=== PATIENT | female | born 1970 | race Native Hawaiian/Other Pacific Islander ===

== ENCOUNTER 2017-06-27 23:21 | Observation (INO) | payer OTHER, BC ==
--- NOTE | 2017-06-27 23:54 | ED PDOC ---
HPI: Chest Pain Time Seen by Provider: 06/27/17 23:30 Chief Complaint (Nursing): Chest Pain Chief Complaint (Provider): Palpitations History Per: Patient History/Exam Limitations: no limitations Onset/Duration Of Symptoms: Hrs (1-2) Current Symptoms Are (Timing): Intermittent Episodes Severity: Moderate Pain Scale Rating Of: 0 Quality: Pressure Associated Symptoms: Diaphoresis (resolved). 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 Her complaints were initially constant, lasting for approximately 1 hour , but are now intermittent. No chest pain, headache, syncope, or other complaints. She has a history of HTN, and did take a Norvasc at 21:00 per her routine. - Risk Factors TAD Risk Factors: Pos: Hypertension Past Medical History Vital Signs: Last Vital Signs Temp 98.2 F 06/28/17 11:56 Pulse 66 06/28/17 14:11 Resp 21 06/28/17 14:11 BP 132/78 06/28/17 14:11 Pulse Ox 99 06/28/17 14:11 - Medical History PMH: HTN, Hyperlipidemia - Surgical History Surgical History: No Surg Hx - Family History Family History: States: Unknown Family Hx - Social History Current smoker - smoking cessation education provided: No Ex-Smoker (has not smoked in the last 12 months): No Alcohol: None Drugs: Denies - Home Medications Home Medications: Ambulatory Orders Medication Instructions Recorded amLODIPine [Norvasc] 10 mg PO DAILY 06/28/17 - Allergies Allergies/Adverse Reactions: Allergies Allergy/AdvReac Type Severity Reaction Status Date / Time No Known Allergies Allergy Verified 06/27/17 23:29 Review of Systems ROS Statement: Except As Marked, All Systems Reviewed And Found Negative Constitutional: Positive for: Sweats Cardiovascular: Positive for: Palpitations. Negative for: Chest Pain Musculoskeletal: Positive for: Neck Pain Physical Exam - Reviewed Nursing Documentation Reviewed: Yes Vital Signs Reviewed: Yes - Physical Exam Appears: Positive for: Well, Non-toxic, No Acute Distress Head Exam: Positive for: ATRAUMATIC, NORMAL INSPECTION, NORMOCEPHALIC Skin: Positive for: Normal Color, Warm, DRY Eye Exam: Positive for: EOMI, Normal appearance, PERRL ENT: Positive for: Normal ENT Inspection Neck: Positive for: Normal, Painless ROM Cardiovascular/Chest: Positive for: Regular Rate, Rhythm, Tachycardia. Negative for: Gallop, Murmur, Friction Rub, Irregularly Irregular Respiratory: Positive for: CNT, Normal Breath Sounds Pulses-Radial (L): 2+ Pulses-Radial (R): 2+ Gastrointestinal/Abdominal: Positive for: Normal Exam, Bowel Sounds, Soft Back: Positive for: Normal Inspection Extremity: Positive for: Normal ROM Neurologic/Psych: Positive for: Alert, Oriented - Laboratory Results Result Diagrams: 06/28/17 08:49 06/28/17 08:49 - ECG ECG: Positive for: Interpreted By Me, Viewed By Me ECG Rhythm: Positive for: Normal QRS, Normal ST Segment, Sinus Tachycardia (105) . Negative for: Atrial Fibrillation, Right Bundle Branch Block, Left Bundle Branch Block, ST/T Changes O2 Sat by Pulse Oximetry: 99 Medical Decision Making Medical Decision Making: Initial Impression: Palpitations v. arrhythmia v. atypical ACS v. HTN Initial Plan: - EKG - Labs and UA Scribe Attestation Documented by Yesi De La O acting as a scribe for Eve Cunha MD. Provider Attestation: All medical record entries made by the Scribe were at my direction and personally dictated by me. I have reviewed the chart and agree that the record accurately reflects my personal performance of the history, physical exam, medical decision making, and the department course for this patient. I have also personally directed, reviewed, and agree with the discharge instructions and disposition. Disposition - Clinical Impression Clinical Impression: Chest pain - Patient ED Disposition Is Patient to be Admitted: No Doctor Will See Patient In The: Office Counseled Patient/Family Regarding: Studies Performed, Diagnosis, Need For Followup - Disposition Disposition: Transfer of Care Disposition Time: 23:59 Condition: FAIR
[2017-06-28 00:29] LABS: BASO # 0.1 K/uL (0.0-0.2); BASO % 1.3 % (0.0-2.0); EOS # 0.1 K/uL (0.0-0.7); EOS % 2.4 % (0.0-4.0); HEMATOCRIT 35.8 % (34.0-47.0); LYMPH # 1.5 K/uL (1.0-4.3); LYMPH % 27.5 % (20.0-40.0); MEAN CELL VOLUME 67.5 fl (81.0-99.0); MEAN CORPUSCULAR HEMOGLOBIN 21.1 pg (27.0-31.0); MEAN CORPUSCULAR HGB CONC 31.2 g/dL (33.0-37.0); MEAN PLATELET VOLUME 7.5 fl (7.2-11.7); MONO # 0.4 K/uL (0.0-0.8); MONO % 7.2 % (0.0-10.0); NEUT # 3.3 K/uL (1.8-7.0); NEUT % 61.6 % (50.0-75.0); WHITE BLOOD COUNT 5.4 K/uL (4.8-10.8)
[2017-06-28 00:37] LABS: BLOOD UREA NITROGEN 14 mg/dl (7-17); CARBON DIOXIDE 21 mmol/L (22-30); CHLORIDE 106 mmol/L (98-107); GFR AFRICAN-AMERICAN > 60; GLUCOSE,RANDOM 115 mg/dL (65-105); POTASSIUM 3.7 MMOL/L (3.6-5.0); SODIUM 138 mmol/l (132-148)
--- NOTE | 2017-06-28 01:49 | ED PDOC ---
- Laboratory Results Result Diagrams: 06/28/17 00:26 06/28/17 00:26 - ECG O2 Sat by Pulse Oximetry: 100 Medical Decision Making Medical Decision Making: Transfer of staff for pending labs and reevaluation. 01:48: labs reviewed and showed no clinically significant findings. Patient reevaluated and the case was referred to Dr. Medley, Medicine steam station supervisor. Scribe Attestation Documented by Yesi De La O acting as a scribe for Ross Gamez MD. Provider Attestation: All medical record entries made by the Scribe were at my direction and personally dictated by me. I have reviewed the chart and agree that the record accurately reflects my personal performance of the history, physical exam, medical decision making, and the department course for this patient. I have also personally directed, reviewed, and agree with the discharge instructions and disposition. Disposition Counseled Patient/Family Regarding: Studies Performed, Diagnosis - Clinical Impression Clinical Impression: Chest pain - POA Present On Arrival: None - Disposition Disposition: Hospitalized as Observation Patient Disposition Time: 01:20 Condition: FAIR
[2017-06-28 04:12] VITALS: BMI 27.6
--- NOTE | 2017-06-28 08:44 | RAD ---
HISTORY: Chest pain COMPARISON: 06/03/2011 FINDINGS: LUNGS: The lungs are well inflated and clear. PLEURA: No significant pleural effusion identified, no pneumothorax apparent. CARDIOVASCULAR: Normal. OSSEOUS STRUCTURES: No significant abnormalities. VISUALIZED UPPER ABDOMEN: Normal. OTHER FINDINGS: None. IMPRESSION: No active pulmonary disease.
[2017-06-28 09:09] LABS: HEMATOCRIT 33.9 % (34.0-47.0); MEAN CELL VOLUME 66.3 fl (81.0-99.0); MEAN CORPUSCULAR HEMOGLOBIN 21.1 pg (27.0-31.0); MEAN CORPUSCULAR HGB CONC 31.8 g/dL (33.0-37.0); RED CELL DISTRIBUTION WIDTH 14.6 % (11.5-14.5); WHITE BLOOD COUNT 6.6 K/uL (4.8-10.8)
[2017-06-28 09:16] LABS: ALB/GLOB RATIO 1.3 (1.0-2.1); ALKALINE PHOSPHATASE 73 U/L (38-126); ALT/SGPT 25 U/L (9-52); AST/SGOT 28 U/L (14-36); BILIRUBIN,TOTAL 0.8 mg/dl (0.2-1.3); BLOOD UREA NITROGEN 8 mg/dl (7-17); CALCIUM 9.1 mg/dL (8.4-10.2); CARBON DIOXIDE 22 mmol/L (22-30); CHLORIDE 106 mmol/L (98-107); CHOLESTEROL 243 mg/dL (0-199); GFR AFRICAN-AMERICAN > 60; GLUCOSE,RANDOM 107 mg/dL (65-105); POTASSIUM 4.1 MMOL/L (3.6-5.0); SODIUM 140 mmol/l (132-148); TOTAL PROTEIN 7.9 G/DL (6.3-8.2)
[2017-06-28 09:48] LABS: THYROID STIMULATING HORMONE 0.64 mIU/ML (0.46-4.68)
[2017-06-28 11:58] VITALS: TEMP 98.2
--- NOTE | 2017-06-28 12:15 | CP.PCM.HP ---
History of Present Illness - History of Present Illness History of Present Illness: This is a 47 y/o female with hx of HTN and hyperlipidemia was admitted for dizziness and palpitation and elevated BP even after taking Norvasc. She has been under a lot of pressure lately. She had seen a transportation lead previously and was told to just go on a diet. .Initial labs showed negative cardiac enzymes and elevated LDL. She denies any chest pain at the moment. Present on Admission - Present on Admission Any Indicators Present on Admission: No History of DVT/PE: No History of Uncontrolled Diabetes: No Urinary Catheter: No Decubitus Ulcer Present: No Review of Systems - Cardiovascular Cardiovascular: Palpitations, Rapid Heart Rate Past Patient History - Past Medical History & Family History Past Medical History?: Yes - Past Social History Smoking Status: Never Smoked - CARDIAC Hx Cardiac Disorders: Yes - PULMONARY Hx Respiratory Disorders: No - NEUROLOGICAL Hx Neurological Disorder: No - HEENT Hx HEENT Problems: No - RENAL Hx Chronic Kidney Disease: No - ENDOCRINE/METABOLIC Hx Endocrine Disorders: No - HEMATOLOGICAL/ONCOLOGICAL Hx Blood Disorders: No - INTEGUMENTARY Hx Dermatological Problems: No - MUSCULOSKELETAL/RHEUMATOLOGICAL Hx Musculoskeletal Disorders: No - GASTROINTESTINAL Hx Gastrointestinal Disorders: No - GENITOURINARY/GYNECOLOGICAL Hx Genitourinary Disorders: Yes - PSYCHIATRIC Hx Psychophysiologic Disorder: No - SURGICAL HISTORY Hx Surgeries: Yes Other/Comment: Fibroids removed. - ANESTHESIA Hx Anesthesia: Yes Hx Anesthesia Reactions: No Hx Malignant Hyperthermia: No Has any member of the family had a problem w/ anesthesia?: No Meds Allergies/Adverse Reactions: Allergies Allergy/AdvReac Type Severity Reaction Status Date / Time No Known Allergies Allergy Verified 06/27/17 23:29 Physical Exam - Head Exam Head Exam: NORMAL INSPECTION - Eye Exam Eye Exam: Normal appearance - ENT Exam ENT Exam: Mucous Membranes Moist - Respiratory Exam Respiratory Exam: Clear to Auscultation Bilateral - Cardiovascular Exam Cardiovascular Exam: REGULAR RHYTHM - GI/Abdominal Exam GI & Abdominal Exam: Normal Bowel Sounds - Neurological Exam Neurological exam: CN II-XII Intact, Oriented x3 - Psychiatric Exam Psychiatric exam: Normal Mood Results - Vital Signs Recent Vital Signs: Last Vital Signs Temp 98.2 F 06/28/17 11:56 Pulse 98 H 06/28/17 11:56 Resp 18 06/28/17 11:56 BP 138/86 06/28/17 11:56 Pulse Ox 100 06/28/17 11:56 - Labs Result Diagrams: 06/28/17 08:49 06/28/17 08:49 Labs: Laboratory Results - last 24 hr 06/28/17 06/28/17 08:49 08:49 WBC 6.6 RBC 5.12 Hgb 10.8 L Hct 33.9 L MCV 66.3 L MCH 21.1 L MCHC 31.8 L RDW 14.6 H Plt Count 257 Sodium 140 Potassium 4.1 Chloride 106 Carbon Dioxide 22 Anion Gap 16 BUN 8 Creatinine 0.5 L Est GFR ( Amer) > 60 Est GFR (Non-Af Amer) > 60 Random Glucose 107 H Calcium 9.1 Total Bilirubin 0.8 AST 28 ALT 25 Alkaline Phosphatase 73 Troponin I < 0.0120 Total Protein 7.9 Albumin 4.5 Globulin 3.4 Albumin/Globulin Ratio 1.3 Triglycerides 56 Cholesterol 243 H LDL Cholesterol Direct 191 H HDL Cholesterol 43 TSH 3rd Generation 0.64 Assessment & Plan (1) Accelerated hypertension Status: Acute (2) Palpitation Status: Acute (3) Hyperlipidemia Status: Acute - Assessment and Plan (Free Text) Plan: Discussed with Dr lester will keep patient on lopressor 50 bid start lipitor 20 mg daily ECHO low fat diet will dc if stable after dose of metoprolol
[2017-06-28 14:13] VITALS: BP 132/78; PULSE 66; RESP 21; O2SAT 99
--- NOTE | 2017-06-28 23:52 | CON ---
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 The patient presented because of palpitations, rapid heartbeat and chest discomfort that is worse on deep breathing. The patient does not recall undergoing a stress test in the past, went to see , Cardiology, had an EKG that was normal. SOCIAL HISTORY: Nonsmoker, nondrinker. 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 MEDICATIONS: The patient is on amlodipine at 10 mg once a day. REVIEW OF SYSTEMS: No nausea or vomiting. No fever or chills. PHYSICAL EXAMINATION: GENERAL: The patient is a middle-aged female, who does not appear to be in any distress. VITAL SIGNS: Blood pressure 140/91, heart rate 94, temperature 98.4,and respirations 15. HEENT: Normocephalic. NECK: No JVD. CHEST: Clear. HEART: S1 and S2 regular. ABDOMEN: Soft. EXTREMITIES: No edema. No calf tenderness. LABORATORY DATA: Hemoglobin and hematocrit 10.8 and 33.9, white count and platelet count are within normal limits. SMA-7: Sodium 140, potassium 4.1, chloride 106, CO2 of 22, glucose 107, BUN 8, and creatinine 0.5. Two sets of troponins are negative. Total cholesterol elevated 243 and triglycerides elevated at 191. EKG revealed sinus tachycardia at a rate of 105. TSH is within normal limits. D-dimer is within normal limits. Chest x-ray is unremarkable. ASSESSMENT: 1. Uncontrolled hypertension. 2. Mild sinus tachycardia. 3. Atypical chest pain, myocardial infarction is ruled out. 4. Hyperlipidemia. RECOMMENDATIONS: Discontinue Norvasc and start instead Lopressor 50 mg once a day, start Lipitor 20 mg once a day, aspirin 81 mg once a day. Obtain an echocardiogram. Blayne Barrientos MD
--- NOTE | 2017-06-30 10:14 | CARD ---
APPROVED REPORT EXAM: Two-dimensional and M-mode echocardiogram with Doppler and color Doppler. Other Information Quality : GoodRhythm : NSR INDICATION Chest Pain 2D DIMENSIONS IVSd0.78 (0.7-1.1cm)LVDd4.65 (3.9-5.9cm) LVOT Diameter1.94 (1.8-2.4cm)PWd0.70 (0.7-1.1cm) IVSs1.20 (0.8-1.2cm)LVDs3.27 (2.5-4.0cm) FS (%) 29.7 %PWs1.24 (0.8-1.2cm) M-Mode DIMENSIONS Left Atrium (MM)3.09 (2.5-4.0cm)IVSd0.91 (0.7-1.1cm) Aortic Root3.31 (2.2-3.7cm)LVDd4.74 (4.0-5.6cm) Aortic Cusp Exc.1.63 (1.5-2.0cm)PWd0.88 (0.7-1.1cm) IVSs1.41 cmFS (%) 45 % LVDs2.59 (2.0-3.8cm)PWs1.38 cm Mitral Valve MV E Zndudynt34.8cm/sMV DECEL [id number] A Kndnkgdr07.5cm/s MV IOG14xzK/A ratio1.5MVA (PHT)3.70cm2 TDI Lateral E' Peak V12.22cm/sMedial E' Peak V8.15cm/sE/Lateral E'8.0 E/Medial E'12.0 Pulmonary Valve PV Peak Pdzrskqc63.6cm/s LEFT VENTRICLE The left ventricle is normal size. There is normal left ventricular wall thickness. The left ventricular function is normal. The left ventricular ejection fraction is 60% There is normal LV segmental wall motion. The left ventricular diastolic function is normal. No left ventricle thrombus noted on this study. There is no ventricular septal defect visualized. There is no left ventricular aneurysm. There is no mass noted in the left ventricle. RIGHT VENTRICLE The right ventricle is normal size. There is normal right ventricular wall thickness. The right ventricular systolic function is normal. ATRIA The left atrium size is normal. The right atrium size is normal. The interatrial septum is intact with no evidence for an atrial septal defect. AORTIC VALVE The aortic valve is normal in structure and function. No aortic regurgitation is present. There is no aortic valvular stenosis. There is no aortic valvular vegetation. MITRAL VALVE The mitral valve is normal in structure and function. There is no evidence of mitral valve prolapse. There is no mitral valve stenosis. There is no mitral valve regurgitation noted. TRICUSPID VALVE The tricuspid valve is normal in structure and function. There is no tricuspid valve regurgitation noted. There is no tricuspid valve prolapse or vegetation. There is no tricuspid valve stenosis. PULMONIC VALVE The pulmonary valve is normal in structure and function. There is no pulmonic valvular regurgitation. There is no pulmonic valvular stenosis. GREAT VESSELS The aortic root is normal in size. The ascending aorta is normal in size. The IVC is normal in size and collapses >50% with inspiration. PERICARDIAL EFFUSION The pericardium appears normal. There is no pleural effusion. <Conclusion> Normal Echocardiogram
--- NOTE | 2017-06-30 11:11 | CARD ---
APPROVED REPORT EKG Measurement Heart [id number] <Conclusion> Sinus tachycardia Nonspecific ST abnormality Abnormal ECG
== END 2017-06-28 16:00 | disposition home or self-care (01) ==
LOC: H.ER 23:21 → H.ERHOLD 06-28 01:22 → H.ICU/CCU 06-28 03:08
PROVIDERS: ADMIT Family Medicine; ATTEND Family Medicine
DX: R07.89 Other chest pain (principal); R00.0 Tachycardia, unspecified; I10 Essential (primary) hypertension; E78.5 Hyperlipidemia, unspecified
CPT/HCPCS: 71010; 80053; 80061; 84443; 84484; 85025; 85027; 85378; 87081; 93005; 93306; 99282; G0378

== ENCOUNTER 2019-01-26 17:25 | Emergency (ER) | payer OTHER ==
[2019-01-26 17:25] VITALS: BMI 27.6
[2019-01-26 17:38] VITALS: TEMP 97.7
--- NOTE | 2019-01-26 19:39 | ED PDOC ---
Lower Extremity Pain/Injury Time Seen by Provider: 01/26/19 18:45 Chief Complaint (Nursing): Lower Extremity Problem/Injury Chief Complaint (Provider): Left Hip Pain History Per: Patient History/Exam Limitations: no limitations Onset/Duration Of Symptoms: Hrs (since this morning) Current Symptoms Are (Timing): Still Present Additional Complaint(s): 48 year old female presents to the ED for new onset left lateral hip pain since waking up this morning, worse with movement. She notes she has been taking Motrin with no relief, last dose around 1500. Otherwise, denies trauma, numbness, back pain, urinary symptoms, fever, and chills. PMD: Jordan Adams Past Medical History Reviewed: Historical Data, Nursing Documentation, Vital Signs Vital Signs: Last Vital Signs Temp 97.7 F 01/26/19 17:36 Pulse 95 H 01/26/19 17:36 Resp 16 01/26/19 17:36 BP 143/85 01/26/19 17:36 Pulse Ox 99 01/26/19 17:36 - Medical History PMH: HTN, Hyperlipidemia Denies: HIV, Chronic Kidney Disease - Surgical History Surgical History: No Surg Hx - Family History Family History: States: Unknown Family Hx - Social History Current smoker - smoking cessation education provided: No Alcohol: None Drugs: Denies - Home Medications Home Medications: Ambulatory Orders Medication Instructions Recorded amLODIPine [Norvasc] 10 mg PO DAILY 06/28/17 Ibuprofen [Motrin] 600 mg PO Q8H PRN #21 tab 01/26/19 - Allergies Allergies/Adverse Reactions: Allergies Allergy/AdvReac Type Severity Reaction Status Date / Time No Known Allergies Allergy Verified 06/27/17 23:29 Review of Systems ROS Statement: Except As Marked, All Systems Reviewed And Found Negative Constitutional: Negative for: Fever, Chills Genitourinary Female: Negative for: Dysuria, Frequency Musculoskeletal: Positive for: Other (left lateral hip pain). Negative for: Back Pain Neurological: Negative for: Numbness Physical Exam - Reviewed Nursing Documentation Reviewed: Yes Vital Signs Reviewed: Yes - Physical Exam Appears: Positive for: No Acute Distress Head Exam: Positive for: ATRAUMATIC, NORMOCEPHALIC Skin: Positive for: Normal Color, Warm, Dry. Negative for: Rash Cardiovascular/Chest: Positive for: Regular Rate, Rhythm Respiratory: Positive for: Normal Breath Sounds. Negative for: Respiratory Distress Pulses-Dorsalis Pedis (L): 2+ Pulses-Dorsalis Pedis (R): 2+ Gastrointestinal/Abdominal: Positive for: Normal Exam, Soft. Negative for: Tenderness Back: Positive for: Normal Inspection. Negative for: Vertebral Tenderness Extremity: Positive for: Normal ROM (bilateral hips), Tenderness (point tenderness to left lateral thigh about 3 finger breadths below buttock, worse with movement; no pelvis or hip tenderness). Negative for: Swelling (or ecchymosis) Neurological/Psych: Positive for: Awake, Alert, Oriented (x3) - ECG O2 Sat by Pulse Oximetry: 99 (RA) Pulse Ox Interpretation: Normal Medical Decision Making Medical Decision Making: Time: 1851 Initial Impression: left hip pain Initial Plan: --US duplex left leg --Reevaluation 1956 Left hip and left femur XRs ordered as per patient request 2021 US FINDINGS: DEEP VEINS: The common femoral, superficial femoral, and popliteal veins are echolucent and compressible. There is normal color Doppler flow throughout. The visualized calf veins appear patent. SUPERFICIAL VEINS: The visualized greater saphenous vein is patent. SOFT TISSUES: No popliteal fossa cyst or other abnormalities. IMPRESSION: No deep venous thrombosis evident on left lower extremity examination. 2144 XRs reviewed by me for no fractures or dislocations. Patient informed if there are any discrepancies in the final read, she will be notified within 24 hours. Otherwise, patient stable for discharge and verbalized understanding of return parameters. Work note for two days out of work provided with script for Motrin 600mg. Advised to follow up with PMD in 2-3 days. Patient again verbalized understanding and agreement with all questions answered at this time. Scribe Attestation: Documented by Stephanie Perry, acting as a scribe for Cha Del Real NP. Provider Scribe Attestation: All medical record entries made by the Scribe were at my direction and personally dictated by me. I have reviewed the chart and agree that the record accurately reflects my personal performance of the history, physical exam, medical decision making, and the department course for this patient. I have also personally directed, reviewed, and agree with the discharge instructions and disposition. Disposition - Clinical Impression Clinical Impression: Leg pain - Patient ED Disposition Is Patient to be Admitted: No - Disposition Referrals: Jordan Adams MD [Staff Provider] - Disposition: Routine/Home Disposition Time: 21:45 Condition: IMPROVED Prescriptions: Ibuprofen [Motrin] 600 mg PO Q8H PRN #21 tab PRN Reason: Pain, Moderate (4-7) Instructions: Lower Extremity Muscle Strain (DC), Stretching Exercises for Your Lower Body Forms: [facility] ED School/Work Excuse Print Language: MALIAN - POA Present On Arrival: None
[2019-01-26 21:47] VITALS: BP 143/91; PULSE 77; RESP 19
[2019-01-26 21:48] VITALS: O2SAT 99
--- NOTE | 2019-01-27 10:29 | RAD ---
Date of service: 01/26/2019 PROCEDURE: HISTORY: pain COMPARISON: None TECHNIQUE: AP pelvis and frog's leg view. . FINDINGS: Bilateral superolateral hip joint space mild narrowing.. Minimal superolateral and minimal inferomedial acetabular spurring. Left-sided may be very slightly more pronounced. No marked differences here seen. Minimal osseous hypertrophic changes over the greater tuberosity. Some concomitant gluteal tendon S calcifications tendinopathy possible. No fracture or lytic lesions. Possible some cortical intraosseous cystic changes of the left greater trochanter Trace iliac sided sclerotic SI joint changes. Pubic symphysis unremarkable. Right stool retention. Left hemipelvic phleboliths. IMPRESSION: No fracture dislocation. Mild bilateral hip arthrosis. Other findings as above.
--- NOTE | 2019-01-27 13:45 | RAD ---
Date of service: 01/26/2019 PROCEDURE: Left Femur Radiographs. HISTORY: pain COMPARISON: None. TECHNIQUE: AP and Lateral Radiographs of the left femur. 4 views obtained. FINDINGS: FEMUR: Normal. No fracture. SOFT TISSUES: Normal. OTHER FINDINGS: None. IMPRESSION: Unremarkable radiographs of the left femur.
--- NOTE | 2019-01-27 13:53 | US ---
Date of service: 01/26/2019 HISTORY: pain. PRIORS: Not available FINDINGS: 2-D, color and duplex Doppler analysis of the lower extremity venous circulation using routine protocol from the femoral veins through the popliteal veins. Venous compressibility: Normal. Flow and augmentation patterns: Normal. Visualized veins upper third of calf: Normal. Ortiz cyst: None. IMPRESSION: No sonographic or Doppler evidence for DVT in left lower extremity.
== END 2019-01-26 22:07 | disposition home or self-care (01) ==
LOC: H.ER 17:25
DX: M16.0 Bilateral primary osteoarthritis of hip (principal); I10 Essential (primary) hypertension; E78.5 Hyperlipidemia, unspecified; M79.605 Pain in left leg
CPT/HCPCS: 73502; 73552; 93971; 96372; 99282; J1885